=== PATIENT | female | born 1985 | race Caucasian/White ===

== ENCOUNTER → 2023-11-16 07:34 | Outpatient (REF) | payer OTHER, SELFPAY | LOC: PNTC 07:34 | PROVIDERS: ATTENDING PHYSICIAN Obstetrics & Gynecology | DX: O09.529 Supervision of elderly multigravida, unspecified trimester (principal); Z87.51 Personal history of pre-term labor | CPT/HCPCS: 76811; 76817 ==

== ENCOUNTER → 2023-12-14 15:58 | Outpatient (REF) | payer OTHER, SELFPAY | LOC: PNTC 15:58 | PROVIDERS: ATTENDING PHYSICIAN Obstetrics & Gynecology | DX: O98.519 Other viral diseases complicating pregnancy, unspecified trimester (principal); U07.1 COVID-19; O09.219 Supervision of pregnancy with history of pre-term labor, unspecified trimester | CPT/HCPCS: 76816; 76817 ==

== ENCOUNTER 2024-01-04 19:48 | Observation (INO) | payer OTHER, SELFPAY ==
[2024-01-04 20:08] VITALS: BMI 27.1
== END 2024-01-04 21:30 | disposition home or self-care (01) ==
LOC: LDRP 19:48
PROVIDERS: ADMITTING PHYSICIAN Obstetrics & Gynecology
DX: N89.8 Other specified noninflammatory disorders of vagina (principal); R10.9 Unspecified abdominal pain; G43.909 Migraine, unspecified, not intractable, without status migrainosus; O99.352 Diseases of the nervous system complicating pregnancy, second trimester; Z3A.27 27 weeks gestation of pregnancy; Z91.013 Allergy to seafood; Z82.3 Family history of stroke; Z80.49 Family history of malignant neoplasm of other genital organs; Z82.49 Family history of ischemic heart disease and other diseases of the circulatory system; Z87.828 Personal history of other (healed) physical injury and trauma
CPT/HCPCS: G0378

== ENCOUNTER → 2024-01-09 08:18 | Outpatient (REF) | payer OTHER, SELFPAY | LOC: REG 08:18 | PROVIDERS: ATTENDING PHYSICIAN Obstetrics & Gynecology | DX: O09.523 Supervision of elderly multigravida, third trimester (principal) | CPT/HCPCS: 36415; 86850; 86900; 86901; J2790 ==

== ENCOUNTER → 2024-01-11 06:53 | Outpatient (REF) | payer OTHER, SELFPAY | LOC: PNTC 06:53 | PROVIDERS: ATTENDING PHYSICIAN Obstetrics & Gynecology | DX: O98.519 Other viral diseases complicating pregnancy, unspecified trimester (principal); U07.1 COVID-19; Z87.51 Personal history of pre-term labor | CPT/HCPCS: 76816 ==

== ENCOUNTER → 2024-02-08 16:33 | Outpatient (REF) | payer OTHER, SELFPAY | LOC: PNTC 16:33 | PROVIDERS: ATTENDING PHYSICIAN Obstetrics & Gynecology | DX: O09.529 Supervision of elderly multigravida, unspecified trimester (principal) | CPT/HCPCS: 59025 ==

== ENCOUNTER → 2024-02-15 16:20 | Outpatient (REF) | payer OTHER, SELFPAY | LOC: PNTC 16:20 | PROVIDERS: ATTENDING PHYSICIAN Obstetrics & Gynecology | DX: O09.529 Supervision of elderly multigravida, unspecified trimester (principal) | CPT/HCPCS: 59025; 76815 ==

== ENCOUNTER → 2024-02-23 14:49 | Outpatient (REF) | payer OTHER, SELFPAY | LOC: PNTC 14:49 | PROVIDERS: ATTENDING PHYSICIAN Obstetrics & Gynecology | DX: O09.529 Supervision of elderly multigravida, unspecified trimester (principal) | CPT/HCPCS: 59025; 76815 ==

== ENCOUNTER → 2024-02-29 16:19 | Outpatient (REF) | payer OTHER, SELFPAY | LOC: PNTC 16:19 | PROVIDERS: ATTENDING PHYSICIAN Obstetrics & Gynecology | DX: O09.519 Supervision of elderly primigravida, unspecified trimester (principal) | CPT/HCPCS: 59025 ==

== ENCOUNTER 2024-03-03 14:48 | Observation (INO) | payer OTHER, SELFPAY ==
[2024-03-03 14:57] VITALS: BP 116/70; BMI 28.7
== END 2024-03-03 16:48 | disposition home or self-care (01) ==
LOC: LDRP 14:48
PROVIDERS: ADMITTING PHYSICIAN Obstetrics & Gynecology
DX: O36.8130 Decreased fetal movements, third trimester, not applicable or unspecified (principal); Z3A.35 35 weeks gestation of pregnancy
CPT/HCPCS: 76815; G0378

== ENCOUNTER → 2024-03-07 16:19 | Outpatient (REF) | payer OTHER, SELFPAY | LOC: PNTC 16:19 | PROVIDERS: ATTENDING PHYSICIAN Obstetrics & Gynecology | DX: O09.521 Supervision of elderly multigravida, first trimester (principal) | CPT/HCPCS: 59025; 76816 ==

== ENCOUNTER 2024-03-10 18:18 | Observation (INO) | payer OTHER, SELFPAY ==
[2024-03-10 18:24] VITALS: BP 118/69; BMI 28.5
== END 2024-03-10 19:45 | disposition home or self-care (01) ==
LOC: LDRP 18:18
PROVIDERS: ADMITTING PHYSICIAN Obstetrics & Gynecology
DX: O36.8130 Decreased fetal movements, third trimester, not applicable or unspecified (principal); Z3A.36 36 weeks gestation of pregnancy; Z91.013 Allergy to seafood; Z87.828 Personal history of other (healed) physical injury and trauma; Z82.3 Family history of stroke; Z80.8 Family history of malignant neoplasm of other organs or systems; Z82.49 Family history of ischemic heart disease and other diseases of the circulatory system
CPT/HCPCS: 59025; 86850; 86870; 86900; 86901; G0378

== ENCOUNTER → 2024-03-14 16:16 | Outpatient (REF) | payer OTHER, SELFPAY | LOC: PNTC 16:16 | PROVIDERS: ATTENDING PHYSICIAN Obstetrics & Gynecology | DX: O09.529 Supervision of elderly multigravida, unspecified trimester (principal) | CPT/HCPCS: 59025; 76815 ==

== ENCOUNTER → 2024-03-21 16:27 | Outpatient (REF) | payer OTHER, SELFPAY | LOC: PNTC 16:27 | PROVIDERS: ATTENDING PHYSICIAN Obstetrics & Gynecology | DX: O99.210 Obesity complicating pregnancy, unspecified trimester (principal) | CPT/HCPCS: 59025; 76815 ==

== ENCOUNTER → 2024-03-28 06:56 | Outpatient (REF) | payer OTHER, SELFPAY | LOC: PNTC 06:56 | PROVIDERS: ATTENDING PHYSICIAN Obstetrics & Gynecology | DX: O09.529 Supervision of elderly multigravida, unspecified trimester (principal) | CPT/HCPCS: 59025; 76815 ==

== ENCOUNTER 2024-03-28 08:15 | Inpatient (IN) | payer OTHER, SELFPAY ==
[2024-03-28 08:23] VITALS: BP 139/75; BMI 28.7
[2024-03-28 10:57] LABS: % Basophils 0.3 % (0-2); % Eosinophils 0.3 % (0-6); % Immature Granulocytes 0.8 % (0-0.5); % Lymphocytes 22.4 % (20.5-51.1); % Monocytes 4.3 % (1.7-9.3); % Neutrophils 71.9 % (42.2-75.2); Absolute Immature Granulocytes 0.1 10^3/uL (0-0.05); Absolute Lymphocytes 2.3 10^3/uL (1.2-3.4); Absolute Monocytes 0.4 10^3/uL (0.1-0.6); Absolute Neutrophils 7.3 10^3/uL (1.4-6.5); Hematocrit 35.8 % (37.0-47.0); Hemoglobin 12.4 g/dL (12.0-16.0); Mean Corp Hgb Conc. 34.6 g/dL (33.0-37.0); Mean Corpuscular Hgb 31.8 pg (27.0-31.0); Mean Corpuscular Volume 91.8 fL (81.0-99.0); Nucleated Red Blood Cells % 0 %; Platelet Count 132 10^3/uL (130-400); Red Cell Dist. Width 12.7 % (11.5-14.5); White Blood Cell Count 10.2 10^3/uL (4.8-10.8)
[2024-03-28] MEDS: CYTOTEC 25 MICROGRAM VAG (12:34)
[2024-03-28] MEDS: CYTOTEC 50 MICROGRAM PO ×2 (16:30→20:36)
[2024-03-28] MEDS: LR 1000 IV (21:20)
[2024-03-29] MEDS: CYTOTEC PO (01:15)
[2024-03-29] MEDS: FENTANYL/BUPIVACAINE 100 EPIDURAL (01:28)
[2024-03-29] MEDS: SUBLIMAZE 100 MCG EPIDURAL (01:28)
[2024-03-29] MEDS: PITOCIN 30 UNITS/NSS 500 ML IV ×2 (01:41→08:14)
[2024-03-29] MEDS: LR 1000 IV (02:01)
[2024-03-29] MEDS: SILVER NITRATE APPLICATOR 1 EACH TOPICAL (08:30)
[2024-03-29] MEDS: METHERGINE INJECTION 0.200000000000000011 MG IM (08:34)
[2024-03-29] MEDS: MOTRIN 600 MG PO ×3 (10:04→23:57)
[2024-03-29] MEDS: TYLENOL 650 MG PO (20:53)
[2024-03-30 04:58] LABS: Hematocrit 32.5 % (37.0-47.0); Hemoglobin 11.3 g/dL (12.0-16.0)
[2024-03-30] MEDS: MOTRIN 600 MG PO ×3 (08:20→20:57)
[2024-03-30] MEDS: PRENATAL PLUS 1 TABLET PO (08:21)
[2024-03-30] MEDS: TYLENOL 650 MG PO ×3 (08:21→20:57)
[2024-03-30] MEDS: HYPERRHO S-D 1500 UNIT IM (10:38)
[2024-03-31] MEDS: MOTRIN 600 MG PO (04:41)
[2024-03-31] MEDS: TYLENOL 650 MG PO (04:41)
[2024-03-31] MEDS: SENOKOT-S 1 TABLET PO (08:02)
[2024-03-31] MEDS: PRENATAL PLUS 1 TABLET PO (08:02)
[2024-04-01 16:08] LABS: Syphilis/T. pallidum Ab Reflex Negative (Negative)
== END 2024-03-31 11:30 | disposition home or self-care (01) | DRG 806 ==
LOC: LDRP 08:15
PROVIDERS: Obstetrics & Gynecology; ADMITTING PHYSICIAN Obstetrics & Gynecology
PROC: 3E0P7VZ Introduction of Hormone into Female Reproductive, Via Natural or Artificial Opening (ICD-10-PCS; 2024-03-28)
PROC: 10907ZC Drainage of Amniotic Fluid, Therapeutic from Products of Conception, Via Natural or Artificial Opening (ICD-10-PCS; 2024-03-29)
PROC: 0KQM0ZZ Repair Perineum Muscle, Open Approach (ICD-10-PCS; 2024-03-29)
PROC: 10E0XZZ Delivery of Products of Conception, External Approach (ICD-10-PCS; 2024-03-29)
PROC: 3E0234Z Introduction of Serum, Toxoid and Vaccine into Muscle, Percutaneous Approach (ICD-10-PCS; 2024-03-30)
DX: O41.03X0 Oligohydramnios, third trimester, not applicable or unspecified (principal); O72.1 Other immediate postpartum hemorrhage; Z37.0 Single live birth; Z3A.39 39 weeks gestation of pregnancy; O70.1 Second degree perineal laceration during delivery; O26.893 Other specified pregnancy related conditions, third trimester; Z67.11 Type A blood, Rh negative
CPT/HCPCS: 88307; 85014; 85018; 85025; 85461; 86780; 86850; 86900; 86901; J2790

== ENCOUNTER → 2024-08-02 14:18 | Outpatient (REF) | payer OTHER, SELFPAY | LOC: RAD 14:18 | PROVIDERS: ATTENDING PHYSICIAN Internal Medicine | DX: J18.9 Pneumonia, unspecified organism (principal) | CPT/HCPCS: 71046 ==

== ENCOUNTER → 2024-08-08 09:39 | Outpatient (REF) | payer OTHER, SELFPAY | LOC: WDC 09:39 | PROVIDERS: ATTENDING PHYSICIAN Advanced Practice Midwife; FAMILY PHYSICIAN Internal Medicine | DX: N63.20 Unspecified lump in the left breast, unspecified quadrant (principal); N63.21 Unspecified lump in the left breast, upper outer quadrant | CPT/HCPCS: 76642; 77062; 77066 ==

== ENCOUNTER → 2024-08-12 06:23 | Outpatient (REF) | payer OTHER, SELFPAY ==
--- NOTE | 2024-08-12 08:47 | OID.BR.INTR ---
[facility] Breast Navigator - Initial
- -
Date of Contact: 08/12/24
Met with patient. Patient given written information on navigator services available at [facility]. Will follow up as needed per protocol.
== END ==
LOC: WDC 06:23
PROVIDERS: ATTENDING PHYSICIAN Advanced Practice Midwife; FAMILY PHYSICIAN Internal Medicine
DX: N63.32 Unspecified lump in axillary tail of the left breast (principal)
CPT/HCPCS: 88305; 19083; A4648

== ENCOUNTER → 2025-02-17 14:50 | Outpatient (REF) | payer OTHER, SELFPAY | LOC: RAD 14:50 | PROVIDERS: ATTENDING PHYSICIAN Internal Medicine | DX: M79.18 Myalgia, other site (principal) | CPT/HCPCS: 93970 ==